=== PATIENT | male | born 1990 | race Caucasian/White ===

== ENCOUNTER 2017-01-05 20:52 | Emergency (ER) | payer OTHER ==
[~2017-01-05] VITALS: Ht 172.7 cm; Wt 72.7 kg
[2017-01-05 21:15] VITALS: BP 112/73; PULSE 114; RESP 18; O2SAT 100
--- NOTE | 2017-01-05 22:18 | ED.REPORT ---
HPI-Overdose/Alcohol Toxicity Date of Service Jan 05, 2017 ED Provider: David Wilson MD This is a 26 year old male with a history of polysubstance abuse presenting to the emergency department seeking medical clearance for placement at a detox center. Last used heroin and methamphetamine 1.5 days ago. Has been using daily for the last 1.5 years. Repots shaking chills. Denies EtOH consumption. Nursing Notes Stated Complaint: DETOX Chief Complaint: Substance Abuse Nursing Notes Reviewed: Yes Allergies: Coded Allergies: Penicillins (Verified Allergy, Unknown, 01/05/17) Sulfa (Sulfonamide Antibiotics) (Verified Allergy, Unknown, 01/05/17) amoxicillin (Verified Allergy, Unknown, 01/05/17) General Time Seen by Provider: 22:18 Chief Complaint Other (drug abuse) Hx Obtained From: Patient Arrived By: Walk-in Severity: Current: Mild Pertinent Negative: Pt denies other symptoms Recent Healthcare: No recent doctor visit, No recent hospitalization Similar Sx Previous: No Risk-Overdose/Alcohol Tox )( Suicide Risk Stratification RF Statements: Risk factors reviewed, No risk factors Past Medical History Past Medical History Polysubstance abuse Social History Alcohol Use: Denies alcohol use Drug Use: IV drugs, Meth Ambulatory Status Independent Review of Systems Constitutional: Reports: Chills, Malaise, Denies: Fever Respiratory: Denies: Parox nocturnal dyspnea, Shortness of breath Cardiovascular: Denies: Chest pain GI: Denies: Abdominal pain, Nausea, Vomiting Complete sys rev & neg: except as marked. Physical Exam Initial Vital Signs Vital Signs (First) Date Time Temp Pulse Resp B/P Pulse Ox O2 Delivery O2 Flow Rate FiO2 01/05/17 21:15 36.6 114 18 112/73 100 Room Air Initial VS: Reviewed Head / Eyes: Atraumatic, Normocephalic, PERRL Neck: Supple, Non-tender, Full range of motion Extremities: Vascular intact, Neuro intact, No swelling, No tenderness Skin: Warm, Dry, No cyanosis General/Constitutional: Awake, Alert Respiratory / Chest: Atraumatic, Breath sounds NL, Breath sounds = bilat, No respiratory distress, No rales, No rhonchi, No wheezing Cardiovascular: No murmurs, No rubs Heart Rate / Rhythm: Positive: Tachycardia Abdomen: Atraumatic, Soft, Non-tender, No guarding, No rebound Neurologic: Oriented X3, Speech NL, No motor deficits, No sensory deficits Psychiatric: Affect NL, Mood NL ENT: Pharynx NL, Tympanic membs NL Mouth: Positive: Mucous membranes dry Re-Eval/Medical Decision Med Decision/Clinical Course 26-year-old male history of IV drug use last use yesterday presenting requesting clearance for [facility]. We called [facility] may do not have any beds. When I told the patient this he stormed out of the hospital. Re-Evaluation/Progress : Time of Eval: 23:17 Re-Evaluation/Progress Note: Plan for d/c, all questions addressed. Counseled Regarding: Diagnosis, Lab results, Need for follow-up, When/why to return to ED Discharge & Departure Impression: Primary Impression: Substance abuse Disposition: Home Discharge Condition All VS Reviewed: Yes Condition: Stable Additional Instructions: Continue to call [facility] to check for beds. Follow-up with your primary care provider. Return to the emergency department if you develop any new or worsening symptoms. Referrals: NOPCP (PCP) Scribe Attestation Portions of this note were transcribed by Taco Carter. I, Dr. Wilson personally performed the history, physical exam and medical decision-making; I reviewed and confirmed the accuracy of the information in the transcribed note. Signed by Clau Kahn, 01/05/2017 at 23:00. David Wilson MD Jan 05, 2017 22:18 TACO CARTER Jan 05, 2017 22:20
== END 2017-01-05 23:20 | disposition home or self-care (01) ==
LOC: SED 20:52
DX: F15.10 Other stimulant abuse, uncomplicated (principal); F11.10 Opioid abuse, uncomplicated; F17.200 Nicotine dependence, unspecified, uncomplicated; Z88.2 Allergy status to sulfonamides; Z88.0 Allergy status to penicillin

== ENCOUNTER 2017-01-06 11:35 | Inpatient (IN) | payer MEDICAID, OTHER ==
[~2017-01-06] VITALS: Ht 172.7 cm; Wt 72.7 kg
[2017-01-06 11:47] VITALS: BP 127/78; PULSE 103; RESP 18; O2SAT 100
--- NOTE | 2017-01-06 12:28 | ED.REPORT ---
HPI-Psychiatric Illness Date of Service Jan 06, 2017 ED Provider: Tin Doherty PA-C Jacinto is an otherwise healthy 26-year-old male who presents seeking to be admitted to detox for methamphetamine and opiate abuse. Patient states that he has been using methamphetamine and opiates intravenously for approximately 8 months. He stopped 2 days ago. He states he is homeless and his family will not help him unless he gets into detox. He has been told there are no beds at [facility]. He states that if he is turned away today he will kill himself. His plan is to acquire a significant amount of heroin and overdose. Denies medical history, medications. Nursing Notes Stated Complaint: DETOX Chief Complaint: Substance Abuse Nursing Notes Reviewed: Yes Allergies: Coded Allergies: Penicillins (Verified Allergy, Unknown, 01/06/17) Sulfa (Sulfonamide Antibiotics) (Verified Allergy, Unknown, 01/06/17) amoxicillin (Verified Allergy, Unknown, 01/06/17) General Time Seen by MD: 12:17 Chief Complaint Other (seeking detox services) Risk-Psychiatric Illness Suicide Risk Stratification RF Statements: Risk factors reviewed Past Medical History Past Medical History Polysubstance abuse Social History Alcohol Use: Denies alcohol use Drug Use: IV drugs, Meth Ambulatory Status Independent Review of Systems Negative unless stated otherwise in history of present illness Physical Exam General: Tired appearing, well developed, well nourished, mild distress. Head: Atraumatic, normocephalic. Eyes: No scleral icterus or injection. No discharge. Vision grossly intact. ENT: Voice clear, hearing grossly intact. Respiratory: Regular rate and rhythm. Breath sounds present, clear to auscultation and equal bilaterally. Cardiovascular: Tachycardic with regular rhythm, without murmur, gallop or rub. No pedal edema. Gastrointestinal: Mild global abdominal tenderness without guarding or rebound. Bowel sounds normoactive. Skin: Warm and dry. Neurological: Grossly nonfocal. Psychological: Alert and oriented. Speech appropriate, linear and logical. Somewhat angry. Initial Vital Signs Vital Signs (First) Date Time Temp Pulse Resp B/P Pulse Ox O2 Delivery O2 Flow Rate FiO2 01/06/17 11:47 36.8 103 18 127/78 100 Room Air Initial VS: Reviewed, Vital signs abnormal (tachycardia) Interpretation & Diagnostics Interpretation & Diagnostics: Noted elevated liver enzymes, low TSH Lab Results Interpretation Result Diagram: 01/06/17 1346 01/06/17 1346 Test 01/06/17 13:20 01/06/17 13:46 01/06/17 15:34 Hold Urine Received (Received) White Blood Count 8.2th/mm3 (3.8-10.1) Red Blood Count 5.28mil/mm3 (4.40-5.80) Hemoglobin 16.0g/dL (13.8-17.2) Hematocrit 46.1% (41.0-50.0) Mean Corpuscular Volume 87.3fL (81-100) Mean Corpuscular Hemoglobin 30.3pg (27.0-35.0) Mean Corpuscular Hemoglobin Concent 34.7% (32.0-37.0) Red Cell Distribution Width 12.7% (12.3-15.4) Platelet Count 294bil/L (150-400) Neutrophils (%) (Auto) 65.5% (40-74) Lymphocytes (%) (Auto) 23.3% (14-46) Monocytes (%) (Auto) 10.2% (4-12) Eosinophils (%) (Auto) 0.4% (0-5) Basophils (%) (Auto) 0.4% (0-3) Sodium Level 141mEq/L (134-144) Potassium Level 3.9mEq/L (3.5-5.2) Chloride Level 103mEq/L (97-108) Carbon Dioxide Level 24mmol/L (18-29) Blood Urea Nitrogen 10mg/dL (6-20) Creatinine 0.88mg/dL (0.76-1.27) Estimat Glomerular Filtration Rate 113mL/min (>59) Glucose Level 133mg/dL (60-99) Calcium Level 8.9mg/dL (8.5-10.1) Total Bilirubin 2.0mg/dL (0.0-1.2) Aspartate Amino Transf (AST/SGOT) 315U/L (0-50) Alanine Aminotransferase (ALT/SGPT) 706U/L (0-44) Alkaline Phosphatase 207U/L (25-150) Total Protein 6.6g/dL (6.4-8.4) Albumin 3.9g/dL (3.4-5.0) Thyroid Stimulating Hormone (TSH) 0.086uIU/mL (0.450-4.500) Hold Perkins Top Tube Received (Received) Alcohol, Quantitative < 10mg/dL (0-10) Re-Eval/Medical Decision Med Decision/Clinical Course I feel that a call from the patient's mother at approximately 1500. She is concerned for his welfare and expressed her hope that we do not discharge him. She states she believes she is depressed, addicted to drugs. She says that he has told her it attempted to commit suicide by overdosing on heroin previously. I discussed this case with Dr. Badillo. 26-year-old male with a history of methamphetamine and opiate abuse presents seeking admission to detox. He states that he is trying out for several days and that was helping. He states that if he is discharged today he will come in suicide. His plan is to take an overdose of heroin. His mother states that he has a previous attempt. Patient states he has been using heroin for approximately 8 months and last used it about 24 hours ago. Physical examination reveals only a mildly tender abdomen without guarding or rebound. Laboratory tests however are suggestive of hepatitis with elevated transaminases and bilirubin. A hepatitis panel was ordered. Also noted low TSH. I discussed the case with Josefa SOUZA, who met with the patient and attempted to arrange a crisis usp bed for him. When this failed, she has made arrangements to have him admitted to [facility]. Discharge & Departure Impression: Primary Impression: Suicidal ideation Additional Impression: Elevated transaminase level Disposition: ADMITTED TO HOSPITAL Referrals: NOPCP (PCP) EDSupervising Provider for APC: JOSR ALVARADO MD, Seth PA-C Jan 06, 2017 12:28
[2017-01-06] MEDS ORDERED: hydrOXYzine Pamoate 25 mg Capsule PO ONE (12:30)
[2017-01-06] MEDS ORDERED: cloNIDine 0.1 mg Tablet PO ONE (12:30)
[2017-01-06] MEDS ORDERED: Phenobarb-Hyoscy-Atrop-Scop 10 mL Elixir PO ONE (12:30)
[2017-01-06 13:52] LABS: BASOPHILS % (AUTO) 0.4 % (0-3); EOSINOPHILS % (AUTO) 0.4 % (0-5); MONOCYTES % (AUTO) 10.2 % (4-12); Mean Corpuscular Hemoglobin 30.3 pg (27.0-35.0); Mean Corpuscular Volume 87.3 fL (81-100); NEUTROPHILS % (AUTO) 65.5 % (40-74); Platelet Count 294 bil/L (150-400)
[2017-01-06 16:57] VITALS: BP 114/77; PULSE 90; O2SAT 100
[2017-01-06] MEDS ORDERED: Buprenorphine 2 mg SL Tablet SL ONE (19:55)
[2017-01-07 00:09] VITALS: BP 113/57; PULSE 80; RESP 15; O2SAT 97
[2017-01-07] MEDS ORDERED: Benzocaine-Menthol Lozenge 2/Pkg PO PRN (00:45)
[2017-01-07] MEDS ORDERED: cloNIDine 0.1 mg Tablet PO PRN (00:45)
[2017-01-07] MEDS ORDERED: Magnesium Hydroxide 10 mL Oral Concentration PO PRN (00:45)
[2017-01-07] MEDS ORDERED: Alum-Mag Hydrox-Simeth 30 mL Suspension PO PRN (00:45)
--- NOTE | 2017-01-07 01:13 | NUR ---
Nursing Admit Note Pt arrival from our ED via wheelchair at 0045 as a voluntary patient with c/o suicidal ideation and Herion / methamphetamine withdrawal. Reports last using street drugs two days earlier. Reports mother will not let him come home until he goes through detox. Pt reports Si of overdosing on Heroin if he doesn't get detox. Pt with history of MRSA treatment one year earlier to include hospitalization. Pt currently homeless, zero previous mental health care. Pt mentions triggers of loud noises and crowded places. Speaks of long time history of anxiety but never evaluated. Addendum: 01/07/17 at 0315 by SONI STEPHENS RN Hernesto Villalobos at [facility] approved patient for six days starting 01/07 with review on 01/12.
--- NOTE | 2017-01-07 05:15 | NUR ---
Observations 1900 to 0700 Pt arrived on the floor from our ED at 00:45 and was able to complete the intake process. Pt was polite and cooperative. Pt went to his room soon after the intake process as completed. Pt first appeared asleep at 01:00 and was observed every 15 minutes through the night as directed.
[2017-01-07 08:03] VITALS: BP 113/69; PULSE 100; RESP 16
[2017-01-07] MEDS: LORazepam 1 mg Tablet PO PRN ×2 (08:20→17:56)
[2017-01-07 08:58] VITALS: BP 113/69; PULSE 100; RESP 15
[2017-01-07 11:07] LABS: Hepatitis A Antibody IgM Negative (Negative); Hepatitis B Core Antibody IgM Negative (Negative)
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
--- NOTE | 2017-01-07 14:28 | NUR ---
Nursing Day Shift- S- "I feel hot and cold and I hurt all over." (At 0800) O- Pt. was awake for breakfast. He was asked about withdrawal symptoms and stated the above. His Pule was 100 so Ativan 1 mg was given at that time. Pt. eat well at meals. He explained that because he had been using meth and Heroin he was still able to eat despite the withdrawal. He was polite and soft spoken. Pt. rated anxiety as 8/10 prior to Ativan dose. A- Seeking help for addiction and anxiety. P- Clonidine patch ordered. Awaiting pharmacy delivery. Cont. BHTP.
--- NOTE | 2017-01-07 18:05 | NUR ---
[facility] Day Shift Pt maintained behavioral control throughout the shift. Pt affect appears mostly flat, somewhat brighter when engaged with staff and peers. Pt appears to be having difficulty dealing with withdrawal symptoms, but has not required substantial intervention thus far. Pt spends most of the shift resting in his room and obtaining snacks from the dining room. Pt is appropriate with staff and peers when engaged. Pt able to request aid from staff appropriately with regard to his hygiene and medical needs. Pt did not attend community meeting or group activities throughout the shift. Pt attended all meals and ate approx 90-100% of all meals.
--- NOTE | 2017-01-07 18:50 | NUR ---
Cigarette Lighter Repairer/Counselor: S: "I don't want drugs to control me anymore." O: Patient slept 4.25 hours last night as per staff. He reports having suicidal thoughts with a plan to overdose on meds. He denies H/I. He denies auditory and visual hallucinations. Patient has a bed at [facility] in [place]. This screen writer spoke with the Security Clerk, Jorden, at [facility] and patient does have a bed there. Patient stated that his mother is going to purchase a bus ticket for him to go to [facility] in [place] 01/11/17. This screen writer will talk to patient's mother to find out the time. A: Patient is cooperative, depressed, flat affect, poor insight, poor judgement. P: Follow care plan, coordinate out-patient providers.
--- NOTE | 2017-01-07 21:20 | NUR ---
Nursing Note Evening Shift 3pm to 11pm Pt AAOx3, visible on unit socializing with peers, mood dysphoric at times, affect congruent. Pt denies SI, plan or intent, stated " I feel safe now that I am here". Thoughts organized, linear and logical. Pt reports he is detoxing from heroin and methamphetamine. Reports stomach upset but declined medication, given Ativan 1mg po prn at 1730 for a pulse of 112 and Motrin for body aches. Pt does not appear to be in physical distress. Appetite and hygiene good. Medication compliant.
--- NOTE | 2017-01-08 05:07 | NUR ---
Nursing Noc Pt without report of pain or discomfort to comic book writer. Out to common area this evening for snacks and watching TV. Continuing to monitor mood behavior, medications, and emotional state. Pt first noted to be asleep at 2145 and remained asleep throughout the night.
[2017-01-08 08:00] VITALS: BP 133/84; PULSE 79; RESP 16
--- NOTE | 2017-01-08 11:13 | PROG NOTE ---
[address] [address] PROGRESS NOTE PATIENT: PHYLLIS MALDONADO : 1990 MR#: [id number] ADMIT: 01/07/2017 JOB ID: [id number] DATE: 01/08/2017 CHIEF COMPLAINT: "I am feeling really sleepy, my dreams are really vivid." This per patient report. HISTORY OF PRESENT ILLNESS: As stated above, the patient identified that he did sleep well last evening, greater than 7 hours of sleep. He indicated that his dreams have been very vivid and colorful. He reports that he does feel some difficulties with withdrawal identifying mild GI complaints of diarrhea and some tremors. He indicates that he is feeling achy and identified muscle pain as a primary complement of care. The patient reports that he is aware that it usually takes him 4-5 days to completely detox. I did review his current laboratory data including a positive hep C screen with elevated antibody titer at 11.0. Also noted elevated liver enzymes. I have called the hospitalist team to review data and they have recommended followup with a GI specialist in the outpatient sector. He reportedly had negative screening for HIV. His DBT tighter is pending at this time. OBJECTIVE: On mental status examination, he was cooperative, polite. He continues to be quite disheveled and he indicated that he did not feel like showering yesterday. His speech was of normal tone, frequency and volume. His mood remains depressed. His affect is blunted. His thought process shows evidence of some circumstantial thought process, feelings of hopelessness. He denied any evidence of specific suicidal ideation, intent or plan, but indicated that he knows that he could not be safe if he were to leave the hospital. He denied any homicidal ideation. He denied any evidence of paranoia, hallucinations, delusions. He was alert, oriented to time and place. His attention and concentration are poor. Insight and judgment are poor. PHYSICAL EXAM: Vital signs of current. Temperature is 36.4, pulse 100, respirations 15, BP 113/69. MEDICATION REVIEW: Includes: 1. Remeron 15 mg q.h.s. 2. Catapres patch system one patch q.7 days. 3. P.r.n. usage of ibuprofen, Tylenol and Ativan. ASSESSMENT: AXIS I 1. Major depressive disorder, recurrent type, nonpsychotic. 2. Rule out posttraumatic stress disorder, chronic. 3. Polysubstance use disorder including amphetamines. 4. Opiate withdrawal. AXIS II Deferred. AXIS III Positive hepatitis C. AXIS IV Stressors are noted for consistent substance abuse, difficulties with primary support system, financial distress. AXIS V Global assessment of functioning current 25. PLAN: 1. Recommendations for continuation of all medications noted. 2. The patient will be encouraged to followup with a GI specialist post discharge for possibilities of undergoing further treatment for hepatitis C. 3. Continuation of pursuit of chemical dependency treatment in [place] on Wednesday.
--- NOTE | 2017-01-08 11:51 | NUR ---
Nursing Day Shift- S/O- Pt. had slept 7 plus hours per report. He was awake for breakfast. He appears slightly disheveled, and flat. He eat well at breakfast, then remained sitting quietly in the DR. He has made no requests for PRN's thus far today. Pt. sounded positive about going to [facility] in [place]. He mentioned that his mother would be helping to facilitate his treatment there. Pt. denied suicidal ideation. A- Addiction, depression and anxiety. P- Probable discharge Wednesday to [facility].
--- NOTE | 2017-01-08 18:06 | NUR ---
[facility] Day Shift Pt maintained behavioral control throughout the shift. Pt affect appears mostly flat, somewhat brighter when engaged with staff and peers. Pt spends most of the shift resting in his room and obtaining snacks from the dining room. Pt is appropriate with staff and peers when engaged. Pt able to request aid from staff appropriately with regard to his hygiene and medical needs. Pt did not attend community meeting or group activities throughout the shift. Pt attended all meals and ate approx 90-100% of all meals.
--- NOTE | 2017-01-08 18:53 | NUR ---
Slot Ambassador/Counselor: S: "I'm feeling really sleepy, my dreams are really vivid." O: Patient slept 7.25+ hours last night as per staff. He reports that he wouldn't feel safe outside the hospital, but contracts for safety in the hospital. He denies H/I. He denies auditory and visual hallucinations. He did not rate depression and anxiety. A: Patient is cooperative, disheveled, blunted affect, depressed, hopeless, poor insight, poor judgment. P: Follow care plan, coordinate out-patient providers.
--- NOTE | 2017-01-08 21:14 | NUR ---
Nurses Note Evening Patient has been out on the unit at intervals watching TV,minimally social with peers. Patients' affect has been constricted with a depressed mood. Patient spoke about his desire for drug treatment and stated his liver disease is even more motivating to stay clean. Will maintain q 15min. checks for safety and support. Addendum: 01/08/17 at 2118 by JÚNIOR HIGUERA RN Amended: Links added.
[2017-01-09 05:09] LABS: Thyroxine (T4) 11.9 ug/dL (4.5-12.0)
--- NOTE | 2017-01-09 05:28 | NUR ---
nursing, nights, 11-7 s/o- has appeared to sleep after 2144 during q 15 minute assessments. a- no apparent distress. p- monitor behavior/emotional state, quality, times and amount of sleep, use and effect of medication. kami
[2017-01-09 09:00] VITALS: BP 133/84; PULSE 107; RESP 17
--- NOTE | 2017-01-09 14:27 | NUR ---
Day Shift Nursing Note-depression/anxiety/SI/socialization S/O-Pt. has been up for meals. He states he feels bored when approached. He is polite and appropriate with staff and peers on the unit. He reported he slept well last night. He denies SI or hallucinations. He has a flat blunted affect. He preferred to stay in his room resting most of the morning. He was more active in the day room in the afternoon when prompted to watch TV or socialize with his peers. He admitted to feeling anxious but did not show any physical signs of anxiety. He has a good appetite. He prefers to not relate much with his peers. A-Depressed. P-Monitor for safety per protocol. Assess efficacy of meds to decrease depression. Encourage engagement in milieu.
[2017-01-09] MEDS: LORazepam 1 mg Tablet PO PRN ×2 (16:51→20:28)
--- NOTE | 2017-01-09 16:51 | NUR ---
Nurses PRN Patient requested medications for anxiety and agitation after an encounter with another peer who was verbally threatening. Patient maintained his control both behaviorally and verbally attempting correct the misunderstanding. He stated he is trying to change his responses to what he would "normally do". He received an Ativan 1mg with a Vistaril 50mg at this time. Patient was praised for his self control. Will assess response. Addendum: 01/09/17 at 2033 by JÚNIOR HIGUERA RN Nurses Note Evening Patients' mood has remained bright and social. He enjoyed a visit from his mother earlier in the shift.He requested and received Vistaril 50mg and Ativan 1mg for anxiety and sleep. Patients' pulse =122 while at rest.disaster or damage control specialist to assess sleep.
--- NOTE | 2017-01-09 17:44 | NUR ---
Observations [id number] Pt was asleep upon start of shift. He attended all meals, eating 100%. Pt presented with a large appetite, stating that snacking helps keep him busy and is a way to cope. He spent much of the day reading in his room and spending time in the dining area. Pt expressed that he felt very anxious as he is a spontaneous person and "I can't do anything in here." Pt seemed to do better with a movie and popcorn. His mother visited in the afternoon for a short period of time. Pt was friendly with peers. He had a slight confrontation with another patient, and responded appropriately. Pt was observed every 15 minutes of shift as directed.
[2017-01-09 20:32] VITALS: PULSE 122; RESP 20
--- NOTE | 2017-01-10 05:09 | NUR ---
nursing, nights, 11-7 s/o- has appeared to sleep after 2200 during q 15 minute assessments. a- no apparent distress. p- monitor behavior/emotional state, quality, times and amount of sleep, use and effect of medication. kami
[2017-01-10 09:00] VITALS: BP 119/79; PULSE 113; RESP 16
[2017-01-10] MEDS: LORazepam 1 mg Tablet PO PRN ×3 (10:36→20:25)
--- NOTE | 2017-01-10 11:27 | NUR ---
Nursing Note [id number] Behavior S/O: Pt ate 100% of breakfast. Pt requested "something for anxiety" at 1010. He rated his anxiety at an "8" on a scale of 1-10/10 the worst. His pulse was 120 & skin was clammy. Pt stated, "I'm nervous about discharge....I don't get anxious when I'm not in here. I just go someplace or do something." Ativan 1 mg given. Pt awake in bed at 1115. He reported Ativan was effective. Pt polite & cooperative. He has been in his room this morning except for breakfast. Conversation tracking clear & organized with normal rate & rhythm. A: Pt is isolative with little interaction with peers & staff. P: Provide supportive environment. Monitor medications & effects.
[2017-01-10 15:04] VITALS: PULSE 120
--- NOTE | 2017-01-10 16:30 | NUR ---
Nurses PRN Patient received Ativan 1mg and Vistaril 50mg for diaphoresis,tachycardia at 120 and internal restlessness at 1504. Further conversation with him disclosed that his Catapress Patch 0.2mg had fallen off in the shower 2 days ago and he hadn't mentioned it to staff. Another patch was obtained and put on along with Ibuprofen 600mg for knee pain. Will assess response. Addendum: 01/10/17 at 2123 by JÚNIOR HIGUERA RN Nurses PRN Patient received Ativan 1mg and Vistaril 50mg for anxiety and sleep at 2024,cage shift manager to assess response.
--- NOTE | 2017-01-10 17:07 | PROG NOTE ---
[address] [address] PROGRESS NOTE PATIENT: PHYLLIS MALDONADO : 1990 MR#: [id number] ADMIT: 01/07/2017 JOB ID: [id number] DATE: 01/10/2017 CHIEF COMPLAINT: "I am kind of nervous about the discharge, I hope everything goes well." HISTORY OF PRESENT ILLNESS: As stated above, the patient did identify that he continues to experience difficulties with fears of planning on discharging tomorrow. He indicated that last evening, he did request p.r.n. doses of medication, stating that he was feeling trapped, closed in, and panicky. He indicated that typically he will either go and use or basically likes to stay active to deal with his anxiety. He indicated that he did receive p.r.n. medication last evening and feels that they did help. Meeting with myself, he continues to be manifesting difficulties with panic attacks, periodically, but he indicates that the medication of Remeron seems to be helping. He reportedly had gains of insight into alternative distress tolerance and states that he knows that he needs to get back into treatment. OBJECTIVE: On mental status exam, he was bright, cooperative, interactive. His speech is of normal tone, frequency, and volume. His mood is anxious. His affect is congruent. His thought process shows no evidence of flight of ideas, loose or disconnected thinking. Thought content: He readily admitted to significant difficulties with fears of discharge, indicating that he hopes that he is successful and that everything falls into place for the transfer to [place]. He denied any suicidal or homicidal ideation. He denied any active hallucinations, delusions. He is alert, oriented to time and place. Attention and concentration intact. Memory intact in the short term, [facility], recent. Insight and judgment are fair. PHYSICAL EXAMINATION: Vital signs are, current: Temperature is unlisted. Pulse is 122, respirations 20, BP unlisted. CURRENT MEDICATIONS: Include: 1. Remeron 15 mg q.h.s. 2. Clonidine patch TTS one q.7 days. 3. P.r.n. usage of Vistaril last evening. 4. Ativan was given this morning. ASSESSMENT: [place] I. 1. Major depressive disorder, recurrent type, nonpsychotic. 2. Panic disorder without agoraphobia. 3. Rule out posttraumatic stress disorder, chronic. 4. Polysubstance use disorder, including both methamphetamine and heroin. [place] II. Deferred. [place] III. None. [place] IV. Stressors are noted for disturbance of coping, financial distress, polysubstance use. [place] V. Global Assessment of Functioning current 40. PLAN: 1. Recommendations to discharge tomorrow with transport to [facility] via the bus system. 2. Continuation of Remeron 15 mg q.h.s. and Catapres patch system TTS one q.7 days. 3. Recommendations for followup care with psychiatric management as well as specialist care with a GI physician due to hepatitis C.
--- NOTE | 2017-01-10 18:09 | PROG NOTE ---
[address] [address] PROGRESS NOTE PATIENT: PHYLLIS MALDONADO : 1990 MR#: [id number] ADMIT: 01/07/2017 JOB ID: [id number] DATE: 01/09/2017 CHIEF COMPLAINT: "I think my mom is coming in to visit." This is per patient report. HISTORY OF PRESENT ILLNESS: As stated above, the patient did identify that he was looking forward to a visit with his mother. Later, during the afternoon, the patient was seen visiting with his mother and showed positive affect. OBJECTIVE: On mental status exam, he was bright, cooperative, interactive. Made good eye contact. He denied any evidence of acute distress. He did spend some time talking about wanting to get his laptop out of the [employer]. His speech was of normal tone, frequency, and volume. His mood was anxious. Affect was congruent. His thought process showed no evidence of racing thoughts, flight of ideas, loose or disconnected thinking. Thought content: There was no evidence of current suicidal, homicidal ideation. No evidence of active hallucinations, delusions. He was alert, oriented to time and place. Attention and concentration intact. Memory intact in the short term, correction, recent. Insight and judgment are fair. PHYSICAL EXAMINATION: Vital signs of current: Temperature 36.1, pulse 107, respirations 17, BP 133/84. MEDICATION REVIEW: Included: 1. Remeron 15 mg q.h.s. 2. Catapres patch system one patch q.7 days. 3. P.r.n. usage of Vistaril and Ativan. ASSESSMENT: [place] I. 1. Major depressive disorder, recurrent type, nonpsychotic. 2. Panic disorder without agoraphobia. 3. Rule out posttraumatic stress disorder, chronic. 4. Polysubstance use disorder including amphetamines and opiates. [place] II. Deferred. [place] III. Hepatitis C. [place] IV. Stressors are noted for disturbance of coping, disturbance of financial distress, polysubstance use. [place] V. Global Assessment of Functioning current 35. PLAN: 1. Recommendations for continuation of all medications noted. 2. Continuation of discharge planning, including transfer to [facility] chemical dependency treatment program in [place] on Wednesday.
--- NOTE | 2017-01-10 18:15 | NUR ---
Observations [id number] Pt was asleep upon start of shift. Mood appeared anxious at times, unsure what to do to occupy his time. Pt did not set a daily goal. He is friendly with peers and staff. Pt appeared to have bouts of anxiety, stating that he felt very antsy and didn't know what to do with himself. Pt continues to enjoy watching movies and eating snacks. His mother visited in the afternoon hours and appeared to be happier after her visit. Pt shared that the room he is staying in is the same room he was born in. He had a large appetite, ate 100% of meals and was observed every 15 minutes of shift as directed.
[2017-01-10 20:25] VITALS: PULSE 122
--- NOTE | 2017-01-11 05:28 | NUR ---
Nursing Noc [id number] s/o- has appeared to sleep after 2200 during q 15 minute assessments. a- no apparent distress. p- monitor behavior/emotional state, quality, times and amount of sleep, use and effect of medication.
--- NOTE | 2017-01-11 07:33 | PROG NOTE ---
[address] [address] PROGRESS NOTE PATIENT: PHYLLIS MALDONADO : 1990 MR#: [id number] ADMIT: 01/07/2017 JOB ID: [id number] DATE: 01/09/2017 CHIEF COMPLAINT: "i think the medicine really helps." This per patient report. HISTORY OF PRESENT ILLNESS: As stated above, the patient identified that he did sleep very well last evening and also identified that his anxiety has been much better. He identified that he has confirmed with his mother plans of being transferred to [facility] on Wednesday. He states that his mother is in the process of buying a bus ticket. He was bright, cooperative, interactive. He denied any evidence of acute distress. MENTAL STATUS EXAMINATION: General appearance: He was bright, cooperative, interactive. He maintained good eye contact throughout. His speech was of normal tone, frequency, and volume. His mood was neutral, affect congruent. Thought process: Showed no evidence of racing thoughts, flight of ideas, loose or disconnected thinking. Thought content: No evidence of current suicidal ideation, intent, or plan. No evidence of homicidal variant. No evidence of paranoia, hallucinations, delusions. He was alert. Oriented to time, place, and situation. Attention and concentration intact. Memory intact in the short term, fdc, and recent. Insight and judgement are fair. PHYSICAL EXAMINATION: Vital signs are current: Temperature 36.1, pulse 107, respirations 17, blood pressure 133/84. MEDICATIONS: Review includes Remeron 15 mg q.h.s., Catapres patch system 1 patch q. 7 days, and p.r.n. doses of Ativan. ASSESSMENT: [place] I: 1. Major depressive disorder, recurrent type, nonpsychotic. 2. Panic disorder without agoraphobia. 3. Rule out PTSD, chronic. 4. Methamphetamine and opiate abuse. [place] IV: Stressors are noted for chronic substance abuse, ineffective coping. [place] V: Global Assessment of Functioning of current 40. PLAN: 1. Recommendations for continuation of all medications noted. 2. Recommendations for supportive therapies with plan and intent to discharge on Wednesday with transport to [facility] chemical dependency residential treatment program in [place].
[2017-01-11] MEDS: LORazepam 1 mg Tablet PO PRN (08:45)
[2017-01-11 09:00] VITALS: BP 121/76; PULSE 97; RESP 18
--- NOTE | 2017-01-11 10:00 | PCM.DIMED ---
Discharge Instructions Date of Service Jan 11, 2017 Dates of Hospitalization Jan 07, 2017 at 00:02 Discharge Diagnosis Discharge Diagnosis Major Depression Recurrent nonpsychotic Panic DO without agoraphobia PTSD features Polysubstance Use DO with Amphetamines and Opiates Diet No restrictions Activity No restrictions Manjit Contreras DO Jan 11, 2017 10:00
[2017-01-11] MEDS ORDERED: MIRT15TA6 PO (10:01)
[2017-01-11] MEDS ORDERED: CLON1PAT2 TOPICAL (10:01)
[2017-01-11] MEDS ORDERED: diphenhydrAMINE 50 mg Capsule PO ONE (11:51)
--- NOTE | 2017-01-11 12:03 | NUR ---
Nursing Note [id number] Behavior S/O: Pt ate 100% of breakfast. Pt is irritated this morning stating, "I want to get out of here....I just want to go down to the bus station & sit & smoke cigarettes." Pt given Ativan 1 mg at 0845 this am because of anxiety. Pt con't to be anxious. Vistaril 50 mg given at 1109. Pt eating lunch. He states he is allergic to onions, but didn't know onions were in his lunch. Benadryl given. A: Pt is anxious about D/C planned later today. P: Pt to d/c this afternoon with a cab to pick him up at 1500 to take him to the bus station for a bus to [place] at 1630. Pt bought a ticket for [facility] to go to [facility] for drug rehabilitation.
--- NOTE | 2017-01-11 15:03 | NUR ---
DC note- Pt left facility 2355, picked up by [employer] for transport to bus station.
--- NOTE | 2017-01-11 16:58 | NUR ---
Dosimetrist/Counselor: S: "I'm ready to go to treatment." O: Patient slept 8 hours last night as per staff. He denies S/I and H/I. He denies auditory and visual hallucinations. He did not rate depression and anxiety. Out-patient appointment: Esther Banks, 01/12/17 at 8:00am. A: Patient is cooperative, hopeful, future oriented. P: Follow care plan, coordinate out-patient providers.
--- NOTE | 2017-01-11 19:38 | DIS ---
[address] [address] DISCHARGE SUMMARY PATIENT: PHYLLIS MALDONADO : 1990 MR#: [id number] ADMIT: 01/07/2017 JOB ID: [id number] DIS: 01/11/2017 DATE: ADMITTING DIAGNOSES: [place] I1. Major depressive disorder, recurrent type, nonpsychotic. 2. Rule out posttraumatic stress disorder, chronic. 3. Polysubstance use disorder including amphetamines, severe. [place] IIDeferred. [place] IIINone. [place] IVStressors noted for chronic substance abuse, significant history of limited mental health support, homelessness, and financial distress. [place] VCurrent GAF 20. DISCHARGE DIAGNOSES: [place] I1. Major depressive disorder, recurrent type, nonpsychotic. 2. Rule out posttraumatic stress disorder, chronic. 3. Polysubstance use disorder including amphetamines, severe. [place] IIDeferred. [place] IIINone. [place] IVStressors noted for chronic substance abuse, significant history of limited mental health support, homelessness, and financial distress. [place] VCurrent GAF 50. REASON FOR ADMISSION: The patient was a 26-year-old male admitted on a voluntary basis with evidence of increasing suicidal ideation with intent and plan in taking an overdose of heroin. During the course of hospitalization, the patient did consolidate a plan of transfer to [facility] in [place] and was agreeable for transition. Throughout hospital course, the patient was placed on a Catapres patch system TTS No. 2 due to significant difficulties with heroin and opiate abuse and withdrawal status. In addition, the patient had a noted long-term history of persistent difficulties with panic attacks, anxiety, and recommendations for usage was discussed. The patient also agreed to initiate doses of Remeron 15 mg q.h.s. and showed beneficial improvement with overall status of mood. Throughout hospital course, the patient agreed to continue with aftercare planning including transition to chemical dependency treatment at [facility]. He also identified a willingness to continue on his current medication regimens with follow-up psychiatric care in the [facility]. Throughout hospital course, the patient also underwent laboratory testing including screening for HIV, tuberculosis, and hepatitis C and the results were positive for hepatitis C with recommendations to follow up with GI specialist in the [facility]. CONDITION AT TIME OF DISCHARGE: Patient was bright, cooperative, interactive. He maintained good eye contact throughout. His speech was of normal tone, frequency, and volume. His mood was neutral. Affect was congruent. He denied any evidence of current distress. No evidence of suicidal or homicidal ideation. No evidence of active hallucinations, delusions. He was alert, oriented to person, place, time, situation. Attention and concentration intact. Memory intact in the short term, custodial, recent. Insight and judgment are fair. PLANS: 1. Recommendations to discharge to [facility] for ongoing chemical dependency treatment. 2. Continuation of medications including Catapres TTS system. 3. One patch q. week, one month supply, no refills. Reason for usage anxiety. 4. Continuation of Remeron 15 mg q.h.s., one month supply, no refills. Reason for usage antidepressant, anxiolytic. 5. Follow up with a GI specialist in [place] for ongoing monitoring of hepatitis function with noted positive hepatitis C titers both antibody and RNA analysis.
== END 2017-01-11 14:55 | disposition home or self-care (01) | DRG 885 ==
LOC: SED 11:35 → MHC 01-07 00:02
PROVIDERS: ADMIT Psychiatry & Neurology Psychiatry; ATTEND Psychiatry & Neurology Psychiatry
DX: F33.2 Major depressive disorder, recurrent severe without psychotic features (principal); R45.851 Suicidal ideations; Z59.0 Homelessness; F19.10 Other psychoactive substance abuse, uncomplicated; B19.20 Unspecified viral hepatitis C without hepatic coma

== ENCOUNTER 2017-01-27 18:19 | Emergency (ER) | payer MEDICAID ==
[~2017-01-27] VITALS: Ht 172.7 cm; Wt 72.7 kg
[~2017-01-27 18:19] MED LIST: CLON1PAT2 TOPICAL; MIRT15TA6 PO
[2017-01-27 18:32] VITALS: BP 130/84; PULSE 109; RESP 16; O2SAT 100
--- NOTE | 2017-01-27 18:54 | ED.REPORT ---
HPI-Psychiatric Illness Date of Service Jan 27, 2017 ED Provider: Abdiel KhouryO. A 26 year homeless male with a history of PTSD, anxiety, major depressive disorder, suicidal ideation, and polysubstance abuse presents to the ED with auditory hallucinations onset two days ago. The patient denies hearing voices currently but has been speaking to and arguing with himself. He denies suicidal ideation, homicidal ideation, or other symptoms. The patient admits to using methamphetamines and heroin yesterday. He has run out of his prescribed psychiatric medications. Nursing Notes Stated Complaint: HEARING VOICES Chief Complaint: Psychiatric Complaint Nursing Notes Reviewed: Yes Allergies: Coded Allergies: Penicillins (Verified Allergy, Unknown, 01/06/17) Sulfa (Sulfonamide Antibiotics) (Verified Allergy, Unknown, 01/06/17) amoxicillin (Verified Allergy, Unknown, 01/06/17) Scheduled Clonidine 0.2 mg/day Patch (Catapres TTS-2) 1 Each Patch 1 PATCH TOPICAL Q7D Mirtazapine (Mirtazapine) 15 Mg Tablet 15 MG PO HS General Time Seen by MD: 18:53 Chief Complaint Hallucinations, auditory Hx Obtained From: Patient Arrived By: Walk-in Onset Occurred: 2 days ago Context of Onset: Illicit drug use Symptom Duration: Since onset Severity: Current: No pain currently Severity: Maximum: No pain Associated with: Denies: Fever Pertinent Negative: Relieved by nothing Related History: Reports: Depression, Illicit drug use, Noncompliant w medication Immunizations: None up to date Recent Healthcare: No recent doctor visit Risk-Psychiatric Illness Suicide Risk Stratification RF Statements: Risk factors reviewed Past Medical History Past Medical History Polysubstance abuse PTSD Anxiety Major depressive disorder Suicidal ideation Past Surgical History None reported Family History Positive for a history of depression and anxiety in the biological mother Smoking History Current Some Day Smoker Social History Heroin Alcohol Use: Denies alcohol use Drug Use: IV drugs, Meth Ambulatory Status Independent Review of Systems Constitutional: Denies: Fever Respiratory: Denies: Non-productive cough, Shortness of breath GI: Denies: Diarrhea, Vomiting Psychiatric: Reports: Hallucinations, auditory, Denies: Homicidal ideation, Suicidal ideation Complete sys rev & neg: except as marked. Physical Exam Initial Vital Signs Vital Signs (First) Date Time Temp Pulse Resp B/P Pulse Ox O2 Delivery O2 Flow Rate FiO2 01/27/17 18:32 36.4 109 16 130/84 100 01/27/17 23:19 Room Air Initial VS: Reviewed Head / Eyes: Atraumatic, Normocephalic ENT: Conjunctiva normal, No scleral icterus Neck: Supple, Full range of motion Respiratory: Breath sounds normal, Clear to auscultation, No respiratory distress Skin: Warm, Dry, No cyanosis General/Constitutional: Awake, Alert Neurologic: Oriented X3, Speech NL Psychiatric: Not suicidal, Not homicidal Abnormal Thinking / Perception: Positive: Delusions - paranoid, Hallucinations , auditory Psychomotor agitation Cardiovascular: Regular rhythm, Heart sounds NL Heart Rate / Rhythm: Positive: Tachycardia Interpretation & Diagnostics URINE DRUG SCREEN: + Methamphetamine + Amphetamines Otherwise Negative Lab Results Interpretation Test 01/27/17 18:54 Hold Urine Received (Received) Re-Eval/Medical Decision Med Decision/Clinical Course Jacinto Rob is a 26-year-old methamphetamine addict who presents with auditory hallucinations after using methamphetamines. He did not feel suicidal homicidal but he was a bit anxious. He slept for about 4 hours after he spoke with our director of social media marketing. He was feeling much better. At no point in time did he seem gravely disabled. He was absolutely not suicidal homicidal. Our director of social media marketing work with him. There is also some new pharmacy abuse personnel that got involved. They are going to help arrange for outpatient follow-up. No inpatient criteria were identified. Jacinto was discharged in stable condition. At discharge he was sober and lucid. Speech is rapid and articulate. No signs of acute psychosis. Source of Hx: Old records Re-Evaluation/Progress : Time of Eval: 22:00 Patient Status: Condition improved Re-Evaluation/Progress Note: Patient seen by director of social media marketing and cleared for discharge. Discussed with patient lab results, diagnosis, and plan for discharge. Follow-up and return to the ER instructions given. Patient agrees with plan for care and all questions were addressed. Counseled Regarding: Diagnosis, Lab results, Need for follow-up, When/why to return to ED Discharge & Departure Impression: Primary Impression: Acute situational disturbance Additional Impression: Substance abuse )( Condition at Discharge: No danger to self, No danger to others, No suicidal ideation, No homicidal ideation, Clear for psych facility Disposition: Home Discharge Condition All VS Reviewed: Yes Condition: Improved Patient Instructions: Major Depression (DC), Methamphetamine Abuse (DC) Additional Instructions: Follow-up as instructed. Do not abuse methamphetamines as they are making your mental health condition worsen. Return if you have any worsening symptoms or if you feel that her having a medical or psychiatric emergency. Read the aftercare instructions given. Referrals: [facility] (PCP) [facility] Scribe Attestation Portions of this note were transcribed by Jacque Denny. I, Dr. Casillas, personally performed the history, physical exam, and medical decision-making; I reviewed and confirmed the accuracy of the information in the transcribed note. Signed by: Clau Vega, 01/27/2017, 23:05 copies to: [facility] Roberto Casillas DO Jan 27, 2017 18:54 JACQUE DENNY Jan 27, 2017 19:02
[2017-01-27 23:19] VITALS: BP 155/77; PULSE 116; RESP 16; O2SAT 98
== END 2017-01-27 23:25 | disposition home or self-care (01) ==
LOC: SED 18:20
DX: F43.0 Acute stress reaction (principal); F15.180 Other stimulant abuse with stimulant-induced anxiety disorder; Z59.0 Homelessness; F17.200 Nicotine dependence, unspecified, uncomplicated; F43.10 Post-traumatic stress disorder, unspecified; Z88.0 Allergy status to penicillin; Z88.1 Allergy status to other antibiotic agents; Z88.2 Allergy status to sulfonamides

== ENCOUNTER 2017-01-28 07:15 | Emergency (ER) | payer MEDICAID, OTHER ==
[~2017-01-28] VITALS: Ht 172.7 cm; Wt 72.7 kg
[2017-01-28 07:19] VITALS: BP 147/89; PULSE 91; RESP 16; O2SAT 100
--- NOTE | 2017-01-28 07:34 | ED.REPORT ---
HPI-Extremity Problem Upper Date of Service Jan 28, 2017 ED Provider: David Wilson MD 25 year old male with a history of PTSD, anxiety, depression, suicidal ideation , and polysubstance abuse presents to the ER complaining of "a couple days" right hand pain. He states that symptoms are due to carpal tunnel, and are exacerbated by flexion and grasping. Associated symptom of numbness of the fingers on his right hand. He also reports suicidal ideation with plan to "overdose on drugs", and expresses desire to be placed in mental health facility. Last methamphetamine and heroin use was two days ago, though he denies any recent alcohol consumption. Patient was seen here in the ER yesterday for auditory hallucinations and methamphetamine abuse, at which time he sobered and was cleared for discharge. Nursing Notes Stated Complaint: RT HAND PAIN/MENTAL HEALTH Chief Complaint: Extremity Trauma Nursing Notes Reviewed: Yes Allergies: Coded Allergies: Penicillins (Verified Allergy, Unknown, 01/06/17) Sulfa (Sulfonamide Antibiotics) (Verified Allergy, Unknown, 01/06/17) amoxicillin (Verified Allergy, Unknown, 01/06/17) Scheduled Clonidine 0.2 mg/day Patch (Catapres TTS-2) 1 Each Patch 1 PATCH TOPICAL Q7D Mirtazapine (Mirtazapine) 15 Mg Tablet 15 MG PO HS General Time Seen by MD: 07:31 Chief Complaint Hand injury right Hx Obtained From: Patient Arrived By: Walk-in Onset Occurred: 2 days ago Symptom Duration: Since onset Location: : Hand right Quality: Painful Severity: Current: Moderate Severity: Maximum: Moderate Associated with: Reports: Numb extremities (Right finger), Denies: Fever Pertinent Negative: Pt denies other symptoms Exacerbated by: Flexion, Grasping Pertinent Negative: Relieved by nothing Recent Healthcare: Recent doctor visit Similar Sx Previous: Yes Past Medical History Past Medical History Polysubstance abuse PTSD Anxiety Major depressive disorder Suicidal ideation Past Surgical History None reported Family History Positive for a history of depression and anxiety in the biological mother Smoking History Current Some Day Smoker Social History Heroin Alcohol Use: Denies alcohol use Drug Use: IV drugs, Meth Other Social History: Homeless Ambulatory Status Independent Review of Systems Constitutional: Denies: Chills, Fever Musculoskeletal: Reports: Extremity pain (Right Hand), Denies: Back pain, Lumbar pain, Neck pain, Thoracic pain Neurologic: Reports: Numbness (Right fingers) Complete sys rev & neg: except as marked. Psychiatric: Reports: Anxiety, Depression, Suicidal ideation, Denies: Homicidal ideation Physical Exam Initial Vital Signs Vital Signs (First) Date Time Temp Pulse Resp B/P Pulse Ox O2 Delivery O2 Flow Rate FiO2 01/28/17 07:19 35.8 91 16 147/89 100 Room Air Initial VS: Reviewed Head / Eyes: Atraumatic, Normocephalic Neck: Supple, Non-tender, Full range of motion Lower Extremities: Vascular intact, Neuro intact, No swelling, No tenderness General/Constitutional: Awake, Alert, Well developed, Well nourished Respiratory / Chest: Breath sounds NL, Breath sounds = bilat, No respiratory distress, No rales, No rhonchi, No wheezing Cardiovascular: Heart rate NL, Regular rhythm, Heart sounds NL, Peripheral circulation NL Upper Extremity / MS: Inspection NL, Full range of motion, No erythema, No deformity, Neurologic intact, Vascular intact, No compartment syndrome Wrist / Hand: Full range of motion, No deformity, Neurologic intact, Vascular intact Right 3rd through 5th finger numbness. Positive Phalen's test on the Right. Abdomen: Soft, Non-tender, No guarding, No rebound, No distention Psychiatric: Not homicidal, Cognitive function NL Abnormal Thinking / Perception: Positive: Suicidal, with plan Interpretation & Diagnostics Lab Results Interpretation Test 01/28/17 09:15 Hold Urine Received (Received) Procedures Splint Application - Fx Mgt Time: 14:04 Procedure Performed by: ED physician Precise Anatomic Location: Right wrist brace Post-Procedure / Complications: Cap refill normal, Post splint vascular nl, Post splint neuro nl, Condition improved, Tolerated procedure well, Patient stable Splint Post-Application Eval Extremity Condition: Cap refill < 2 sec, Distal sensation intact, Distal motor Intact, No compartment syndrome Re-Eval/Medical Decision Med Decision/Clinical Course 26-year-old male history of psychiatric disorder and carpal tunnel presenting with right hand pain worsening carpal tunnel symptoms times days. Phalen's positive. Patient was given a wrist brace for carpal tunnel. He was accepted at the local crisis center due to his addiction to IV drugs. He last used 2 days ago. His urine tox was negative. He initially said he wanted to kill himself if he did not get into crisis respite. Once he got into crisis respite he said he no longer wanted to kill himself and would not hurt himself. He will be picked up at 1 AM at our hospital in waiting room by taxi to take him to crisis respite. He contracts for safety. rodent control worker saw him, set this up and agrees with discharge. Source of Hx: Old records Re-Evaluation/Progress : Time of Eval: 14:02 Re-Evaluation/Progress Note: No longer suicidal. Taxi will hot die picker patient here at 01:00 tomorrow. Discussed lab results and plan to discharge. Patient is amenable to the plan. Return precautions given. All other questions addressed. Counseled Regarding: Diagnosis, Lab results, Need for follow-up, When/why to return to ED Discharge & Departure Impression: Primary Impression: Carpal tunnel syndrome Additional Impression: Heroin withdrawal Disposition: Home Discharge Condition All VS Reviewed: Yes Condition: Stable Patient Instructions: Carpal Tunnel Syndrome (DC) Additional Instructions: Your workup today was reassuring. I do not believe that there is any dangerous cause for your symptoms at this time. Go straight to crisis respite. Return to the ER if you develop uncontrollable pain, fever, chills, or any other concerning symptoms. Please seek immediate care if you have any thoughts of harming yourself or others. Referrals: NOPCP (PCP) Dereckibe Attestation Portions of this note were transcribed by Chidi Simmons. I, Dr. Wilson, personally performed the history, physical exam and medical decision-making; I reviewed and confirmed the accuracy of the information in the transcribed note. Signed by: Clau Rene, 01/28/2017 - 14:05 David Wilson MD Jan 28, 2017 07:34 CHIDI SIMMONS Jan 28, 2017 07:36
== END 2017-01-28 14:32 | disposition home or self-care (01) ==
LOC: SED 07:15
DX: G56.01 Carpal tunnel syndrome, right upper limb (principal); F11.23 Opioid dependence with withdrawal; F17.200 Nicotine dependence, unspecified, uncomplicated; Z88.0 Allergy status to penicillin; Z88.1 Allergy status to other antibiotic agents; Z88.2 Allergy status to sulfonamides

== ENCOUNTER 2017-03-11 10:37 | Emergency (ER) | payer OTHER ==
[~2017-03-11] VITALS: Ht 172.7 cm; Wt 68.2 kg
[2017-03-11 10:46] VITALS: BP 151/100; PULSE 133; RESP 15; O2SAT 100
--- NOTE | 2017-03-11 11:17 | ED.REPORT ---
HPI-Abd Pain M Under 40 Date of Service Mar 11, 2017 ED Provider: Yordy Tee History of Present Illness: 27yo male with 2 month hx. of intermittent abdominal pain, worse in past 2 days. + emesis x 2 today, decreased appetite. Normal BMs. He uses IV heroin and meth daily. Pain is sharp, constant, mid-epigastric and non-radiating. Nursing Notes Stated Complaint: STOMACH PAIN Chief Complaint: Male Abdominal Pain Nursing Notes Reviewed: Yes Allergies: Coded Allergies: Penicillins (Verified Allergy, Unknown, 01/06/17) Sulfa (Sulfonamide Antibiotics) (Verified Allergy, Unknown, 01/06/17) amoxicillin (Verified Allergy, Unknown, 01/06/17) Scheduled Buprenorphine HCl/Naloxone HCl (Suboxone 8 mg-2 mg Sl Film) 1 Each Film 1 EACH SL DAILY General Time Seen by MD: 11:15 Chief Complaint Abdominal pain Hx Obtained From: Patient Arrived By: Walk-in Sudden in Onset?: Yes Onset Occurred: 2 days ago Symptom Duration: Since onset Progression since Onset: Gradually worsening Location: : Epigastric Quality: Same as prior, Sharp, Stabbing Radiation: : Does not radiate Severity: Current: Severe Severity: Maximum: Severe Associated with: Reports: Vomiting, Denies: Chills, Constipation, Diarrhea, Fever, Melena Pertinent Negative: Pt denies other symptoms Pertinent Negative: Relieved by nothing Recent Healthcare: No recent doctor visit Similar Sx Previous: Yes Risk Factors Torsion Risk Stratification Risk factors reviewed CAD Risk Stratification Risk factors reviewed TAD Risk Stratification Risk factors N/A Past Medical History Past Medical History Polysubstance abuse PTSD Anxiety Major depressive disorder Suicidal ideation Past Surgical History None reported Family History Positive for a history of depression and anxiety in the biological mother Smoking History Current Some Day Smoker Social History Heroin Alcohol Use: Denies alcohol use Drug Use: IV drugs, Meth, Other (heroin) Other Social History: Homeless Ambulatory Status Independent Review of Systems Constitutional: Denies: Chills, Fever Respiratory: Denies: Shortness of breath Cardiovascular: Denies: Chest pain GI: Reports: Abdominal pain, Nausea, Vomiting, Denies: Diarrhea Male: Denies Dysuria, Denies Hematuria Musculoskeletal: Denies: Back pain, Neck pain Psychiatric: Reports: Depression Physical Exam Physical Exam Notes: Moderate distress, tachycardia noted. Initial Vital Signs Vital Signs (First) Date Time Temp Pulse Resp B/P Pulse Ox O2 Delivery O2 Flow Rate FiO2 03/11/17 10:46 36.2 133 15 151/100 100 Room Air Initial VS: Reviewed General/Constitutional: Awake, Alert, Well hydrated Distress / Hydration: Positive: Distress moderate Behavior: Positive: Anxious Respiratory / Chest: Breath sounds NL, Breath sounds = bilat, No respiratory distress Cardiovascular: Regular rhythm, Heart sounds NL Heart Rate / Rhythm: Positive: Tachycardia Tenderness/Guarding/Rebound: Positive: Guarding voluntary, Tender epigastric Bowel Sounds / Distention: Positive: Bowel sounds hyperactive Interpretation & Diagnostics Interpretation & Diagnostics: Lactate improved with hydration. Lab Results Interpretation Result Diagram: 03/11/17 1140 03/11/17 1140 Test 03/11/17 11:40 03/11/17 12:10 03/11/17 13:45 White Blood Count 11.6th/mm3 (3.8-10.1) Red Blood Count 5.99mil/mm3 (4.40-5.80) Hemoglobin 18.4g/dL (13.8-17.2) Hematocrit 52.4% (41.0-50.0) Mean Corpuscular Volume 87.5fL (81-100) Mean Corpuscular Hemoglobin 30.7pg (27.0-35.0) Mean Corpuscular Hemoglobin Concent 35.1% (32.0-37.0) Red Cell Distribution Width 13.2% (12.3-15.4) Platelet Count 324bil/L (150-400) Neutrophils (%) (Auto) 68.3% (40-74) Lymphocytes (%) (Auto) 22.2% (14-46) Monocytes (%) (Auto) 6.9% (4-12) Eosinophils (%) (Auto) 2.1% (0-5) Basophils (%) (Auto) 0.2% (0-3) Sodium Level 138mEq/L (134-144) Potassium Level 3.7mEq/L (3.5-5.2) Chloride Level 97mEq/L (97-108) Carbon Dioxide Level 23mmol/L (18-29) Blood Urea Nitrogen 12mg/dL (6-20) Creatinine 0.87mg/dL (0.76-1.27) Estimat Glomerular Filtration Rate 114mL/min (>59) Glucose Level 97mg/dL (60-99) Calcium Level 9.7mg/dL (8.5-10.1) Magnesium Level 2.0mg/dL (1.6-2.6) Total Bilirubin 1.1mg/dL (0.0-1.2) Aspartate Amino Transf (AST/SGOT) 93U/L (0-50) Alanine Aminotransferase (ALT/SGPT) 207U/L (0-44) Alkaline Phosphatase 116U/L (25-150) Total Protein 8.2g/dL (6.4-8.4) Albumin 4.3g/dL (3.4-5.0) Lipase 31U/L (13-60) Hold Urine Received (Received) Lactic Acid Level 1.5mmol/L (0.4-2.0) Re-Eval/Medical Decision Med Decision/Clinical Course Abdominal pain decreased with ED treatment. Pt. had 2 episodes of diarrhea in ED. [place], requested Pt. be held in ED until [facility] could come and evaluate him. 16:20 Pt. resting comfortably, abdomen soft. Re-Evaluation/Progress : Time of Eval: 13:00 )( Re-Eval Abdomen: Soft Patient Status: Condition improved, Pain improved Differential Diagnosis: Positive: Acute abdominal pain, Diarrhea, Gastroenteritis Counseled Regarding: Diagnosis, Lab results, Need for follow-up, When/why to return to ED Patient Discharge & Departure Primary Impression: Generalized abdominal pain Additional Impression: Substance abuse Disposition: Home Patient Instructions: Acute Abdominal Pain (ED) Additional Instructions: Please avoid IV drug use. Contact [facility] and [facility] tomorrow (business cards given). Take meds as needed for opioid withdrawal symptom control. Eat a mild/bland diet for the next 2 days: no meats , dairy products. or anything fried/spicey. Return to ER if worse. Referrals: [facility] EDSupervising Provider for APC: Torin Sadler MD Attending Statement I have seen and examined the patient. I have reviewed the chart and agree with the documentation as recorded by the Midlevel Provider, including assessment, treatment plan, and disposition. Findings from my exam are included in documentation above. Yordy Tee PAC Mar 11, 2017 11:17 Torin Sadler MD Mar 15, 2017 09:21
[2017-03-11] MEDS ORDERED: 0.9% Sodium Chloride 1,000 ML IV ONE ×2 (11:20→12:35)
[2017-03-11] MEDS ORDERED: Pantoprazole 4 mg/mL 10 mL Inj IVPUSH ONE (11:20)
[2017-03-11 11:55] LABS: BASOPHILS % (AUTO) 0.2 % (0-3)
[2017-03-11 12:01] LABS: EOSINOPHILS % (AUTO) 2.1 % (0-5); MONOCYTES % (AUTO) 6.9 % (4-12); Mean Corpuscular Hemoglobin 30.7 pg (27.0-35.0); Mean Corpuscular Volume 87.5 fL (81-100); NEUTROPHILS % (AUTO) 68.3 % (40-74); Platelet Count 324 bil/L (150-400)
[2017-03-11] MEDS ORDERED: Haloperidol 5 mg/mL Inj IVPUSH ONE (12:05)
[2017-03-11 16:14] VITALS: BP 138/89; PULSE 90; RESP 16; O2SAT 100
[2017-03-11] MEDS ORDERED: CLON0.1T PO (16:33)
[2017-03-11] MEDS ORDERED: HYDR25CA PO (16:33)
[2017-03-11] MEDS ORDERED: ONDA8TAB7 PO (16:33)
[2017-03-11 16:39] VITALS: BP 128/80; PULSE 100; O2SAT 100
[2017-03-12] MEDS ORDERED: BUPR1FIL3 SL (12:54)
== END 2017-03-11 16:42 | disposition home or self-care (01) ==
LOC: SED 10:37
DX: R10.13 Epigastric pain (principal); F11.10 Opioid abuse, uncomplicated; F15.20 Other stimulant dependence, uncomplicated; R11.10 Vomiting, unspecified; F43.10 Post-traumatic stress disorder, unspecified; F17.200 Nicotine dependence, unspecified, uncomplicated; Z59.0 Homelessness; Z88.0 Allergy status to penicillin; Z88.2 Allergy status to sulfonamides; Z88.8 Allergy status to other drugs, medicaments and biological substances
CPT/HCPCS: 36415; 80053; 81002; 83605; 83690; 83735; 85025; 96361; 96374; 96375; 99285; J1200; J1630; J2270; J7030

== ENCOUNTER 2017-03-12 08:25 | Emergency (ER) | payer OTHER ==
[~2017-03-12] VITALS: Ht 172.7 cm; Wt 68.2 kg
[~2017-03-12 08:25] MED LIST changes: +CLON0.1T PO; +HYDR25CA PO; +ONDA8TAB7 PO
[2017-03-12 08:27] VITALS: BP 125/80; PULSE 105; RESP 20; O2SAT 100
--- NOTE | 2017-03-12 08:34 | ED.REPORT ---
HPI-General Illness Date of Service Mar 12, 2017 ED Provider: Dr. Galicia A 27 year old male with a history of polysubstance abuse and PTSD presents to the ED seeking detox treatment. He reports body and joint aces.He last used heroin yesterday around noon. Normal heroin use is a couple grams. He did sleep well last night. The patient did not try to get detox treatment yesterday , but has tried in the past. He has tried Suboxone in the past, but has never tried methadone. He is more interested in Suboxone than he is in methadone. Nursing Notes Stated Complaint: HEROIN DETOX Chief Complaint: Substance Abuse Nursing Notes Reviewed: Yes Allergies: Coded Allergies: Penicillins (Verified Allergy, Unknown, 01/06/17) Sulfa (Sulfonamide Antibiotics) (Verified Allergy, Unknown, 01/06/17) amoxicillin (Verified Allergy, Unknown, 01/06/17) No Active Prescriptions or Reported Meds General Time Seen by MD: 08:33 Chief Complaint Other (detox) Hx Obtained From: Patient Arrived By: Walk-in Sudden in Onset?: No Onset Occurred: Yesterday Symptom Duration: Since onset Severity: Current: Mild Severity: Maximum: Mild Recent Healthcare: Recent doctor visit (Visited ED last night) Similar Sx Previous: No Past Medical History Past Medical History Notes: no Methadome in past Past Medical History Polysubstance abuse PTSD Anxiety Major depressive disorder Suicidal ideation Methicillin-resistant Staph Aureus, positive last year. Reports: Depression Past Surgical History None reported Family History Positive for a history of depression and anxiety in the biological mother Smoking History Current Some Day Smoker Social History Heroin, smokes and injects No THC Alcohol Use: Denies alcohol use Drug Use: IV drugs, Meth, Other Other Social History: Homeless Ambulatory Status Independent Review of Systems He has taken Suboxone in the past. He has taken it too early, and it hurt. He has never tried Methadone, and is more interested in using Suboxone. Reports: Body aches. Joint aches. Denies: skin abscesses. Full Review of Systems GI: Denies: Diarrhea Skin: Denies Rash Complete sys rev & neg: except as marked. Physical Exam Vital Signs Vital Signs Date Time Temp Pulse Resp B/P Pulse Ox O2 Delivery O2 Flow Rate FiO2 03/12/17 08:27 36.1 105 20 125/80 100 Room Air Initial VS: Reviewed General/Constitutional: Awake, Alert Patient is sleepy, completely cooperative. He is yawning and tearful. Head / Eyes: Atraumatic, Normocephalic Respiratory / Chest: Atraumatic, Breath sounds NL, Breath sounds = bilat, No respiratory distress, No rales, No rhonchi, No wheezing Cardiovascular: Regular rhythm, Heart sounds NL, No murmurs, Peripheral circulation NL (extremities are well perfused.) Heart Rate / Rhythm: Positive: Tachycardia Abdomen: Soft Upper Extremities Minor track nova on right arm, no abscesses. Skin: Warm, Dry Mild diaphoresis. Neurologic: Oriented X3, Speech NL Interpretation & Diagnostics Interpretation & Diagnostics: UA: + meth, opiates (no methadone, no history of methadone) Lab Results Interpretation Test 03/12/17 08:46 Hold Urine Received (Received) Lab Results Interpretation: Urine Dipstick is positive for Methamphetamines, Opiates, and Amphetamines. Re-Eval/Medical Decision Med Decision/Clinical Course Detox bed at 6pm. Did well with suboxone 8mg. Will be given rx for suboxone 8/2 #6 to be taken SL daily. Appt with [facility] will be made on Wednesday (not able to do so today). Doing remarkably better after initial suboxone dose. Ready for detox bed. Source of Hx: Old records Time of Eval: 09:00 Re-Evaluation/Progress Note: Rechecked patient who reports no methadone in the past Time of Eval: 09:36 Re-Evaluation/Progress Note: Rechecked patient and explained plan for Crisis Care and Suboxone treatment. Consultation #1: Call Returned at: 10:50 Note: Discussed patient case with psych social worker. garbage worker will work on getting him a bed at detox facility. Consultation #2: Call Returned at: 11:52 Note: Dsicussed patient case with psych social worker who reports that patient has been screened. Counseled Regarding: Diagnosis, Lab results, Need for follow-up, When/why to return to ED Discharge & Departure Primary Impression: Heroin withdrawal Additional Impression: Opiate addiction Disposition: Home (to crisis respite) Referrals: NOPCP (PCP) Dereckibkelli Attestation Portions of this note were transcribed by Juan Aguiar. I, Dr. Galicia personally performed the history, physical exam and medical decision-making; I reviewed and confirmed the accuracy of the information in the transcribed note. Signed by: Clau Gao 03/12/2017, 0838. copies to: Mila Freeman MD Mar 12, 2017 08:34 Juan Aguiar Mar 12, 2017 08:39
[2017-03-12] MEDS ORDERED: Buprenorphine 2 mg SL Tablet SL ONE (10:05)
[2017-03-12] MEDS ORDERED: BUPR1FIL3 SL (12:54)
[2017-03-12 13:01] VITALS: BP 120/76; PULSE 100; RESP 18; O2SAT 100
== END 2017-03-12 13:03 | disposition home or self-care (01) ==
LOC: SED 08:25
DX: F11.23 Opioid dependence with withdrawal (principal); F17.200 Nicotine dependence, unspecified, uncomplicated; Z59.0 Homelessness; Z88.0 Allergy status to penicillin; Z88.1 Allergy status to other antibiotic agents; Z88.2 Allergy status to sulfonamides

== ENCOUNTER 2017-04-30 19:06 | Emergency (ER) | payer OTHER ==
[~2017-04-30] VITALS: Ht 172.7 cm; Wt 72.7 kg
[~2017-04-30 19:06] MED LIST changes: +BUPR1FIL3 SL; -CLON0.1T PO; -CLON1PAT2 TOPICAL; -HYDR25CA PO; -MIRT15TA6 PO; -ONDA8TAB7 PO
[2017-04-30 19:32] VITALS: BP 119/77; PULSE 62; RESP 15; O2SAT 100
--- NOTE | 2017-04-30 20:04 | ED.REPORT ---
HPI-General Illness Date of Service Apr 30, 2017 ED Provider: Mila Galicia MD Patient is a 27 year old male with a history of Hep C, polysubstance abuse, PTSD and depression who presents to the ED wanting to detox from meth and heroin. The patient reports that he last used last night. He was discharged from [facility] on 04/28 due to multiple missed appointments. Nursing Notes Stated Complaint: DETOX Chief Complaint: Substance Abuse Nursing Notes Reviewed: Yes Allergies: Coded Allergies: Penicillins (Verified Allergy, Unknown, 04/30/17) Sulfa (Sulfonamide Antibiotics) (Verified Allergy, Unknown, 04/30/17) amoxicillin (Verified Allergy, Unknown, 04/30/17) Scheduled Buprenorphine/Naloxone 8-2 mg (Buprenorphine/Naloxone 8-2 mg) 1 Each Tab.subl 1 TABLET SL DAILY General Time Seen by MD: 20:04 Chief Complaint Other (heroin and meth withdrawal ) Hx Obtained From: Patient Arrived By: Walk-in Sudden in Onset?: Yes Symptom Duration: Since onset Recent Healthcare: No recent hospitalization, Recent doctor visit Similar Sx Previous: Yes Past Medical History Past Medical History Notes: no Methadome in past Past Medical History Polysubstance abuse PTSD Anxiety Major depressive disorder Suicidal ideation Methicillin-resistant Staph Aureus, positive last year. Reports: Depression Past Surgical History None reported Family History Positive for a history of depression and anxiety in the biological mother Smoking History Current Some Day Smoker Social History Heroin, smokes and injects No THC Alcohol Use: Denies alcohol use Drug Use: IV drugs, Meth, Other Other Social History: Homeless Ambulatory Status Independent Review of Systems Full Review of Systems Skin: Reports Diaphoresis Complete sys rev & neg: except as marked. Physical Exam Vital Signs Vital Signs Date Time Temp Pulse Resp B/P Pulse Ox O2 Delivery O2 Flow Rate FiO2 04/30/17 22:39 99 18 131/59 98 Room Air 04/30/17 20:36 108 20 127/55 99 Room Air 04/30/17 19:32 36.7 62 15 119/77 100 Initial VS: Reviewed General/Constitutional: Awake, Alert COW score of 27 Head / Eyes: Atraumatic, Normocephalic ENT: Atraumatic, Airway patent Neck: Atraumatic, Supple, Full range of motion Respiratory / Chest: Atraumatic, Breath sounds NL, Breath sounds = bilat, No respiratory distress, No rales, No rhonchi, No wheezing Cardiovascular: Regular rhythm, Heart sounds NL Heart Rate / Rhythm: Positive: Tachycardia Abdomen: Atraumatic, Soft, Non-tender Back: Atraumatic, Full range of motion Skin: Atraumatic, Warm Color / Condition: Positive: Diaphoresis present Neurologic: Oriented X3, Speech NL Psychiatric: Affect NL, Mood NL Interpretation & Diagnostics Lab Results Interpretation Test 04/30/17 20:23 Hold Urine Received (Received) Re-Eval/Medical Decision Source of Hx: Old records Time of Eval: 21:57 Re-Evaluation/Progress Note: After Suboxone dose pt was feeling better but continued to have bloodshot eyes and diaphoresis. Counseled Regarding: Diagnosis, Need for follow-up, When/why to return to ED Discharge & Departure Primary Impression: Opiate addiction Substance use status: in withdrawal Qualified Code: F11.23 - Opioid dependence with withdrawal Additional Impressions: Polysubstance (excluding opioids) dependence Heroin withdrawal Disposition: Home Discharge Condition All VS Reviewed: Yes Condition: Stable Additional Instructions: There is a bed at crisis respite for you at 9am tomorrow morning. You will need to get there yourself. Your next dose of suboxone will be due tomorrow, after you fill the prescription. You were discharged from [facility] because you have missed too many appointments. Your clinical opiate withdrawal score was high enough tonight to give you a dose of 8mg of subutex tonight. There is a bed a detox tonight. I will give you a prescription for 8mg of suboxone daily for 5 days. You need to contact [facility] to reschedule an appointment. then you need to KEEP that appointment. We will NOT continue to provide Suboxone from the ER because you can't make it to [facility]. I wish you well and hope you are able to get to the clinic. Referrals: [facility] Scribe Attestation Portions of this note were transcribed by Donovan Flores. I, Dr. Galicia personally performed the history, physical exam and medical decision-making; I reviewed and confirmed the accuracy of the information in the transcribed note. Signed by : Clau Morelos, 04/30/17 and 2112. copies to: [facility] Roberto Casillas DO Apr 30, 2017 20:04 Taylor Umanzor Apr 30, 2017 20:44 Donovan Flores Apr 30, 2017 21:08 Mila Galicia MD Apr 30, 2017 23:31
[2017-04-30 20:36] VITALS: BP 127/55; PULSE 108; RESP 20; O2SAT 99
[2017-04-30] MEDS ORDERED: Buprenorphine 2 mg SL Tablet SL ONE (20:50)
[2017-04-30] MEDS ORDERED: BUPR1TAB36 SL (20:58)
[2017-04-30 22:39] VITALS: BP 131/59; PULSE 99; RESP 18; O2SAT 98
== END 2017-04-30 22:43 | disposition home or self-care (01) ==
LOC: SED 19:06
DX: F11.23 Opioid dependence with withdrawal (principal); F15.23 Other stimulant dependence with withdrawal; F43.10 Post-traumatic stress disorder, unspecified; F32.9 Major depressive disorder, single episode, unspecified; F41.9 Anxiety disorder, unspecified; F17.200 Nicotine dependence, unspecified, uncomplicated; Z59.0 Homelessness; Z86.19 Personal history of other infectious and parasitic diseases; Z86.14 Personal history of Methicillin resistant Staphylococcus aureus infection; Z88.0 Allergy status to penicillin

== ENCOUNTER 2017-05-09 17:33 | Emergency (ER) | payer OTHER ==
[~2017-05-09] VITALS: Ht 172.7 cm; Wt 72.7 kg
[~2017-05-09 17:33] MED LIST changes: -BUPR1FIL3 SL; +BUPR1TAB36 SL
[2017-05-09 17:50] VITALS: BP 123/79; PULSE 107; RESP 16; O2SAT 98
[2017-05-09 19:01] LABS: BASOPHILS % (AUTO) 2.1 % (0-3); EOSINOPHILS % (AUTO) 2.6 % (0-5); Mean Corpuscular Hemoglobin 31.6 pg (27.0-35.0); NEUTROPHILS % (AUTO) 51.4 % (40-74); Platelet Count 236 bil/L (150-400)
[2017-05-09 19:06] VITALS: BP 116/56; PULSE 101; O2SAT 97
--- NOTE | 2017-05-09 19:57 | ED.REPORT ---
HPI-Psychiatric Illness Date of Service May 09, 2017 ED Provider: Torin Sadler MD A 27 year old male with a history of polysubstance abuse, PTSD, major depressive disorder and hepatitis C presents to the ED with suicidal ideation seeking detox. He last used at 0000 last night. Patient has been using IV heroin and meth since he was 19. Patient typically uses them simultaneously. He is currently experiencing withdrawal symptoms and admits to suicidal ideation at this time. His last period of sobriety was over a year ago. Patient has had previous success with Suboxone. He denies any homicidal ideation, fever, chills , nausea, skin abscesses or vomiting. Nursing Notes Stated Complaint: SUICIDAL Chief Complaint: Psychiatric Complaint Nursing Notes Reviewed: Yes Allergies: Coded Allergies: Penicillins (Verified Allergy, Unknown, 05/09/17) Sulfa (Sulfonamide Antibiotics) (Verified Allergy, Unknown, 05/09/17) amoxicillin (Verified Allergy, Unknown, 05/09/17) General Time Seen by MD: 18:25 Chief Complaint Suicidal ideation Hx Obtained From: Patient Arrived By: Walk-in Onset Occurred: Yesterday Context of Onset: Illicit drug use Symptom Duration: Since onset Progression Since Onset: Unchanged Associated with: Reports: Illicit drug use Pertinent Negative: Pt denies other symptoms Recent Healthcare: No recent doctor visit, No recent hospitalization Risk-Psychiatric Illness Suicide Risk Stratification Suicide Risk Factors - Adult: : Substance abuse RF Statements: Risk factors reviewed Past Medical History Past Medical History Notes: No Methadome in past Past Medical History Polysubstance abuse PTSD Anxiety Hepatitis C Major depressive disorder Suicidal ideation Methicillin-resistant Staph Aureus, positive last year. Reports: Depression Past Surgical History None reported Family History Positive for a history of depression and anxiety in the biological mother Smoking History Current Some Day Smoker Social History Heroin, smokes and injects No THC Alcohol Use: Denies alcohol use Drug Use: IV drugs, Meth, Other Other Social History: Homeless Ambulatory Status Independent Review of Systems Constitutional: Denies: Chills, Fever GI: Denies: Nausea, Vomiting Skin: Denies Rash Psychiatric: Reports: Suicidal ideation, Denies: Homicidal ideation Complete sys rev & neg: except as marked. Physical Exam Initial Vital Signs Vital Signs (First) Date Time Temp Pulse Resp B/P Pulse Ox O2 Delivery O2 Flow Rate FiO2 05/09/17 17:50 36.7 107 16 123/79 98 Room Air Initial VS: Reviewed Head / Eyes: Atraumatic, Normocephalic, PERRL Neck: Supple, Non-tender, Full range of motion General/Constitutional: Awake, Alert, No acute distress Neurologic: Oriented X3, Speech NL, No motor deficits, No sensory deficits Psychiatric: Not homicidal Abnormal Mood/Affect: Positive: Anxious, Irritable Abnormal Thinking / Perception: Positive: Suicidal, no plan PSYCH: Restless Respiratory / Chest: Atraumatic, No respiratory distress Cardiovascular: Peripheral circulation NL, Pulses = bilaterally Abdomen: Atraumatic, Soft ABDOMEN: Inconsistent right sided abdominal pain Skin: Atraumatic, Color NL, No rash, Warm, Dry Upper Extremity / MS: Atraumatic, Inspection NL, Neurologic intact, Vascular intact UPPER EXTREMITITES: Tract nova present in the R anticubtal fossa Lower Extremity / Pelvis / MS: Atraumatic, Inspection NL, Neurologic intact, Vascular intact Interpretation & Diagnostics Lab Results Interpretation Result Diagram: 05/09/17 1851 05/09/17 1851 Test 05/09/17 18:10 05/09/17 18:51 Hold Urine Received (Received) White Blood Count 5.8th/mm3 (3.8-10.1) Red Blood Count 4.55mil/mm3 (4.40-5.80) Hemoglobin 14.4g/dL (13.8-17.2) Hematocrit 40.5% (41.0-50.0) Mean Corpuscular Volume 89.0fL (81-100) Mean Corpuscular Hemoglobin 31.6pg (27.0-35.0) Mean Corpuscular Hemoglobin Concent 35.6% (32.0-37.0) Red Cell Distribution Width 12.5% (12.3-15.4) Platelet Count 236bil/L (150-400) Neutrophils (%) (Auto) 51.4% (40-74) Lymphocytes (%) (Auto) 31.2% (14-46) Monocytes (%) (Auto) 12.0% (4-12) Eosinophils (%) (Auto) 2.6% (0-5) Basophils (%) (Auto) 2.1% (0-3) Sodium Level 137mEq/L (134-144) Potassium Level 3.8mEq/L (3.5-5.2) Chloride Level 101mEq/L (97-108) Carbon Dioxide Level 25mmol/L (18-29) Blood Urea Nitrogen 30mg/dL (6-20) Creatinine 1.08mg/dL (0.76-1.27) Estimat Glomerular Filtration Rate 89mL/min (>59) Glucose Level 162mg/dL (60-99) Calcium Level 8.9mg/dL (8.5-10.1) Total Bilirubin 1.0mg/dL (0.0-1.2) Aspartate Amino Transf (AST/SGOT) 66U/L (0-50) Alanine Aminotransferase (ALT/SGPT) 111U/L (0-44) Alkaline Phosphatase 72U/L (25-150) Total Protein 6.4g/dL (6.4-8.4) Albumin 3.9g/dL (3.4-5.0) Thyroid Stimulating Hormone (TSH) 0.632uIU/mL (0.450-4.500) Re-Eval/Medical Decision Re-Evaluation/Progress : Time of Eval: 20:13 Patient Status: Condition improved Re-Evaluation/Progress Note: Patient is informed of the available bed at [facility]. He understands and agrees with the intended treatment plan. Counseled Regarding: Diagnosis, Lab results, Need for follow-up, When/why to return to ED Discharge & Departure Impression: Primary Impression: Opiate addiction Additional Impression: Polysubstance abuse Disposition: Home Discharge Condition All VS Reviewed: Yes Condition: Improved Patient Instructions: Buprenorphine (Into the mouth), Methamphetamine Abuse (ED ), Suicide Prevention for Adults (ED) Additional Instructions: Thank you for trusting us with your care this evening. I highly recommend that you abstain from heroin or meth abuse. Please take Suboxone as directed. Go directly to [facility] following discharge. Visit [facility] on to refill your Suboxone prescription. Please return to the emergency department for any new or worsening conditions including any difficulty breathing, uncontrollable vomiting or any thoughts of harming yourself or others. Referrals: [facility] Additional Phone Number [facility] Scribe Attestation Portions of this note were transcribed by Robyn Humphrey. I, Dr. Sadler personally performed the history, physical exam and medical decision-making; I reviewed and confirmed the accuracy of the information in the transcribed note. Signed by: Clau Rodríguez, 05/09/172013. Torin Sadler MD May 09, 2017 19:57 ROBYN HUMPHREY May 09, 2017 20:02
[2017-05-09] MEDS ORDERED: Buprenorphine 2 mg SL Tablet SL ONE (20:00)
[2017-05-09] MEDS: Buprenorphine 2 mg SL Tablet SL ONE ×2 (20:18→20:56)
[2017-05-09] MEDS ORDERED: BUPR1TAB36 SL (21:08)
[2017-05-09] MEDS ORDERED: Albuterol-Ipratropium 3 mL Inhalation Solution ONE (22:14)
[2017-05-09 23:18] VITALS: BP 126/54; PULSE 104; O2SAT 97
== END 2017-05-09 23:18 | disposition home or self-care (01) ==
LOC: SED 17:33
DX: F11.20 Opioid dependence, uncomplicated (principal); F15.10 Other stimulant abuse, uncomplicated; F32.9 Major depressive disorder, single episode, unspecified; R45.851 Suicidal ideations; F43.10 Post-traumatic stress disorder, unspecified; F17.210 Nicotine dependence, cigarettes, uncomplicated; Z86.14 Personal history of Methicillin resistant Staphylococcus aureus infection; Z88.2 Allergy status to sulfonamides; Z88.0 Allergy status to penicillin